=== PATIENT | female | born 1970 | race Caucasian/White ===

== ENCOUNTER 2022-06-20 09:00 | Outpatient (RCR) | payer OTHER, SELFPAY ==
[2022-06-20 09:05] VITALS: BP 115/76; PULSE 80; RESP 16; TEMP 35.7
[2022-06-20 09:27] VITALS: BP 115/76; PULSE 80; RESP 16; TEMP 35.7; O2SAT 100
[2022-06-20 09:43] VITALS: BP 106/65; PULSE 72; RESP 18; TEMP 36.4; O2SAT 97
[2022-06-20 10:28] VITALS: BP 107/71; PULSE 74; RESP 16; TEMP 36.7; O2SAT 99
[2022-06-20 11:13] VITALS: BP 118/81; PULSE 75; RESP 18; TEMP 36.7; O2SAT 99
[2022-06-20 11:45] VITALS: BP 113/73; PULSE 78; RESP 18; TEMP 36.8; O2SAT 97
== END 2022-12-16 23:59 | disposition home or self-care (01) ==
LOC: CCIC 09:00
PROVIDERS: PCP Internal Medicine Hematology & Oncology; Referring Provider Internal Medicine Hematology & Oncology; Visit Provider Clinical Nurse Specialist
DX: C49.9 Malignant neoplasm of connective and soft tissue, unspecified (principal)
CPT/HCPCS: 36415; 36430; 36591; 86850; 86900; 86901; 86922; P9016